=== PATIENT | male | born 1960 | race Caucasian/White ===

== ENCOUNTER 2023-04-23 08:09 | Day surgery (SDC) | payer OTHER ==
[2023-04-23] MEDS ORDERED: Sodium Chloride 0.9(Preservative Free) 10 ML IJ ONE (08:10)
[2023-04-23] MEDS ORDERED: Depo-Medrol 40 MG/ML IM ONE (08:10)
[2023-04-23] MEDS ORDERED: DIPRIVAN 200 MG/20 ML IV ONE (09:54)
--- NOTE | 2023-04-23 10:55 | XRAY ---
Indication: Right L1-L3 transforaminal RASHEEDA. Intraoperative fluoroscopy provided for 39 seconds. 5 digital spot image submitted for interpretation demonstrates posterior needle tips projecting over the expected right L1 and L2 nerve roots. Small amount of contrast injected for needle tip placement. Correlate with intraoperative findings/report.
[2023-04-23] MEDS ORDERED: Lactated Ringers 1,000 ML IV ONE (11:02)
--- NOTE | 2023-04-23 13:17 | XRAY ---
39 seconds of fluoroscopy was used in surgery for a right L1-L3 transforaminal RSAHEEDA.
== END 2023-04-23 10:25 | disposition home or self-care (01) ==
LOC: SDC-PAIN 08:09
PROVIDERS: ATTEND Psychiatry & Neurology Pain Medicine
DX: M54.16 Radiculopathy, lumbar region (principal)
CPT/HCPCS: 64483; 64484; 72100; 77003; J1030; J2704; Q9966

== ENCOUNTER 2025-07-13 15:38 | Day surgery (SDC) | payer MEDICARE ==
[2025-07-13] MEDS ORDERED: LIDOCAINE HCL 1% 50 MG/5 ML VL IJ ONE (15:39)
[2025-07-13] MEDS ORDERED: BUPIVACAINE 0.5% VIAL IJ ONE (15:39)
[2025-07-13] MEDS ORDERED: methylPREDNISolone acetate IM ONE (15:39)
--- NOTE | 2025-07-13 19:47 | XRAY ---
Indication: Right hip injection. Intraoperative fluoroscopy provided for 21 seconds. Single digital spot image submitted for interpretation demonstrates needle tip lateral to right femur neck. Small amount of contrast injected for needle tip placement. Correlate with intraoperative findings/report.
--- NOTE | 2025-07-13 19:51 | XRAY ---
21 seconds of fluoroscopy used in surgery for a right intra-articular hip injection.
== END 2025-07-13 17:05 | disposition home or self-care (01) ==
LOC: SDC-PAIN 15:38
PROVIDERS: ATTEND Psychiatry & Neurology Pain Medicine
DX: M16.11 Unilateral primary osteoarthritis, right hip (principal)

== ENCOUNTER 2025-08-31 07:32 | Day surgery (SDC) | payer MEDICARE ==
[2025-08-31] MEDS ORDERED: methylPREDNISolone acetate IM ONE (07:33)
[2025-08-31] MEDS ORDERED: BUPIVACAINE 0.5% VIAL IJ ONE (07:33)
[2025-08-31] MEDS ORDERED: propofoL IV ONE (08:40)
[2025-08-31] MEDS ORDERED: Lactated Ringers 1,000 ML IV ONE (09:14)
--- NOTE | 2025-08-31 12:34 | XRAY ---
Indication: Right SI joint and right greater trochanter bursa injection. Intraoperative fluoroscopy provided for 15 seconds. 2 digital spot image obtained prone submitted for interpretation demonstrates posterior needle tip projecting over right SI joint. 2nd needle tip lateral to right greater trochanter. Small amount of contrast injected for needle tip placement. Correlate with intraoperative findings/report.
--- NOTE | 2025-08-31 12:52 | XRAY ---
15 seconds of fluoroscopy was used in surgery for a right sacroiliac joint and greater trochanteric bursa injection.
== END 2025-08-31 09:15 | disposition home or self-care (01) ==
LOC: SDC-PAIN 07:32
PROVIDERS: ATTEND Psychiatry & Neurology Pain Medicine
DX: M46.1 Sacroiliitis, not elsewhere classified (principal); E11.9 Type 2 diabetes mellitus without complications